=== PATIENT | female | born 1985 | race Caucasian/White ===

== ENCOUNTER 2020-10-12 14:46 | Outpatient (REF) | payer OTHER, SELFPAY ==
[2020-10-14 11:49] LABS: COVID-19 RT-PCR UVMMC Result Negative (Negative)
== END 2020-10-12 14:47 | disposition home or self-care (01) ==
LOC: NCHCN 14:46
PROVIDERS: Visit Provider Registered Nurse
DX: J06.9 Acute upper respiratory infection, unspecified (principal); Z20.822 Contact with and (suspected) exposure to COVID-19
CPT/HCPCS: U0003

== ENCOUNTER 2021-06-30 10:35 | Outpatient (REF) | payer OTHER, SELFPAY ==
--- NOTE | 2021-06-30 08:30 | PAPFT_PTH ---
PATIENT: Hollie Myers LOC: [facility]#:[id number] AGE/SX: 36/F ROOM: RE06/30/[address]: Deena Bishop : 1985 BED: DIS: 06/30/2021 SPEC #: [id number] RECD: 06/30/21 16:32 STATUS: DAX RIZVI #: [id number] JARRETT: 06/30/21 08:[address]: Deena Bishop DEPT: [facility] Cytology RECD BY: Yoly Ley Tissues: 1 - CX/ENDOCX FOR PAP SMEARS Procedures: PAP THIN PREP/[facility] Screening HPV DNA PROBE Comments: [id number]
[2021-06-30 16:28] LABS: BUN 12 mg/dL (7-18); CREATININE 0.8 mg/dL (0.55-1.02); Calcium 8.7 mg/dL (8.5-10.1); Glucose 108 mg/dL (74-106)
[2021-06-30 16:29] LABS: ALT 42 U/L (14-59); AST 15 U/L (15-37); Albumin 4.1 g/dL (3.4-5.0); Alkaline Phosphatase 65 U/L (46-116); Anion Gap 11.8 mmol/L (3-11); Bilirubin, Total 0.3 mg/dL (0.2-1.0); CO2 26.2 mmol/L (21.0-32.0); Calculated LDL 98 mg/dL (<100); Chloride 103 mmol/L (98-107); Cholesterol 177 mg/dL (<200); HDL Cholesterol 40 mg/dL (40-60); Potassium 4.1 mmol/L (3.5-5.1); Sodium 141 mmol/L (136-145); Total Protein 7.8 g/dL (6.4-8.2); Triglyceride 198 mg/dL (<150)
== END 2021-06-30 10:36 | disposition home or self-care (01) ==
LOC: NCHCN 10:35
PROVIDERS: Visit Provider Registered Nurse
DX: Z00.00 Encounter for general adult medical examination without abnormal findings (principal); E66.9 Obesity, unspecified; Z13.220 Encounter for screening for lipoid disorders; Z12.4 Encounter for screening for malignant neoplasm of cervix; Z11.51 Encounter for screening for human papillomavirus (HPV); Z01.419 Encounter for gynecological examination (general) (routine) without abnormal findings
CPT/HCPCS: 80053; 80061; 88142; 87624

== ENCOUNTER 2022-09-21 13:53 | Outpatient (REF) | payer OTHER, SELFPAY ==
[2022-09-21 15:35] LABS: Hemoglobin A1C 6.7 % (<5.7)
== END 2022-09-21 13:54 | disposition home or self-care (01) ==
LOC: NCHCN 13:53
PROVIDERS: PCP Physician Assistant; Visit Provider Physician Assistant
DX: Z13.1 Encounter for screening for diabetes mellitus (principal)
CPT/HCPCS: 83036

== ENCOUNTER 2023-06-27 14:08 | Outpatient (REF) | payer OTHER, SELFPAY ==
[2023-06-27 19:22] LABS: Hemoglobin A1C 7.1 % (<5.7)
[2023-06-27 19:27] LABS: ALT 64 U/L (14-59); AST 28 U/L (15-37); Albumin 4.4 g/dL (3.4-5.0); Alkaline Phosphatase 67 U/L (46-116); Anion Gap 12.9 mmol/L (3-11); BUN 21 mg/dL (7-18); Bilirubin, Total 0.3 mg/dL (0.2-1.0); CO2 25.1 mmol/L (21.0-32.0); CREATININE 0.7 mg/dL (0.55-1.02); Calcium 8.8 mg/dL (8.5-10.1); Calculated LDL 99 mg/dL (<100); Chloride 104 mmol/L (98-107); Cholesterol 182 mg/dL (<200); Estimated GFR 113.46 (mL/min/1.73m2); Glucose 102 mg/dL (74-106); HDL Cholesterol 42 mg/dL (40-60); Potassium 4.1 mmol/L (3.5-5.1); Sodium 142 mmol/L (136-145); Total Protein 7.7 g/dL (6.4-8.2); Triglyceride 207 mg/dL (<150)
[2023-06-27 19:36] LABS: COMMENT (LAB VIEW ONLY) 145.35 mg/dL; Microalb ug/mg Crea 13.3 ug/mg Cr
== END 2023-06-27 14:09 | disposition home or self-care (01) ==
LOC: NCHCN 14:08
PROVIDERS: PCP Physician Assistant; Referring Provider Physician Assistant; Visit Provider Physician Assistant
DX: E11.9 Type 2 diabetes mellitus without complications (principal)
CPT/HCPCS: 80053; 80061; 82043; 82570; 83036

== ENCOUNTER 2024-11-20 18:32 | Outpatient (REF) | payer OTHER, SELFPAY ==
[2024-11-20 16:23] LABS: ALT 46 U/L (14-59); AST 23 U/L (15-37); Albumin 3.9 g/dL (3.4-5.0); Alkaline Phosphatase 66 U/L (46-116); Anion Gap 10.8 mmol/L (3-11); BUN 14 mg/dL (7-18); Bilirubin, Total 0.5 mg/dL (0.2-1.0); CO2 26.2 mmol/L (21.0-32.0); Calcium 8.5 mg/dL (8.5-10.1); Calculated LDL 100 mg/dL (<100); Chloride 102 mmol/L (98-107); Cholesterol 171 mg/dL (<200); Estimated GFR 112.75 (mL/min/1.73m2); Glucose 140 mg/dL (74-106); HDL Cholesterol 39 mg/dL (>or=50); Potassium 4.1 mmol/L (3.5-5.1); Sodium 139 mmol/L (136-145); Total Protein 7.3 g/dL (6.4-8.2); Triglyceride 161 mg/dL (<150)
[2024-11-20 16:26] LABS: Hemoglobin A1C 6.5 % (<5.7)
[2024-11-20 16:30] LABS: COMMENT (LAB VIEW ONLY) 119.19 mg/dL; Microalb ug/mg Crea 18.7 ug/mg Cr
== END 2024-11-20 18:33 | disposition home or self-care (01) ==
LOC: NCHCN 18:32
PROVIDERS: PCP Physician Assistant; Visit Provider Physician Assistant
DX: E11.9 Type 2 diabetes mellitus without complications (principal)
CPT/HCPCS: 80053; 80061; 82043; 82570; 83036

== ENCOUNTER 2025-02-04 14:25 | Outpatient (REF) | payer OTHER, SELFPAY ==
[2025-02-04 15:30] LABS: HCT 43.0 % (36.0-46.0); HGB 14.9 g/dL (11.2-15.7); MCH 30.0 pg (27.0-33.0); MCHC 34.7 % (32.0-36.0); MCV 87 fL (80-95); MPV 9.9 fL (8.0-11.0); Platelet Count 278 10^3/uL (130-400); RBC 4.97 10^6/uL (3.93-5.22); RDW 12.8 % (11.7-14.6); RDW-SD 38.8 fL; WBC 10.08 10^3/uL (4.4-10.8)
[2025-02-04 16:02] LABS: Anion Gap 12.0 mmol/L (3-11); BUN 15 mg/dL (7-18); CO2 26.0 mmol/L (21.0-32.0); Calcium 8.8 mg/dL (8.5-10.1); Chloride 101 mmol/L (98-107); Glucose 125 mg/dL (74-106); Potassium 3.6 mmol/L (3.5-5.1); Sodium 139 mmol/L (136-145)
== END 2025-02-04 14:26 | disposition home or self-care (01) ==
LOC: NCHCN 14:25
PROVIDERS: PCP Physician Assistant; Visit Provider Physician Assistant
DX: R10.A1 Flank pain, right side (principal)
CPT/HCPCS: 80048; 85027; 87086